=== PATIENT | female | born 1955 | race Caucasian/White ===

== ENCOUNTER 2020-08-03 14:37 | Emergency (ER) | payer MEDICAID, MEDICARE ==
[~2020-08-03] VITALS: Ht 154.9 cm; Wt 73.0 kg
[2020-08-03] MEDS: MORPHINE SULFATE 10 MG/ML CPJ IM ONE ×2 (16:00→17:00)
[2020-08-03 21:22] VITALS: BP 159/77
== END 2020-08-03 21:25 | disposition home or self-care (01) ==
LOC: ER 14:37
DX: S86.092A Other specified injury of left Achilles tendon, initial encounter (principal); R03.0 Elevated blood-pressure reading, without diagnosis of hypertension; X58.XXXA Exposure to other specified factors, initial encounter; Y93.89 Activity, other specified; Y92.89 Other specified places as the place of occurrence of the external cause
CPT/HCPCS: 29505; 73718; 76881; 99285; J2270